=== PATIENT | female | born 1935 | race Caucasian/White ===

== ENCOUNTER 2016-11-03 08:24 | Emergency (ER) | payer OTHER ==
[~2016-11-03] VITALS: Ht 154.9 cm; Wt 50.0 kg
[2016-11-03] MEDS ORDERED: WARF1TAB46 PO (08:31)
[2016-11-03] MEDS ORDERED: TRAMADOL 50MG TABLET PO ONE (08:45)
[2016-11-03] MEDS ORDERED: BACITRACIN ZINC OINT UDPKT TOP ONE (09:15)
[2016-11-03 10:51] VITALS: BP 122/88
== END 2016-11-03 10:53 | disposition home or self-care (01) ==
LOC: ER 08:24
DX: S80.212A Abrasion, left knee, initial encounter (principal); S80.211A Abrasion, right knee, initial encounter; R07.82 Intercostal pain; W01.0XXA Fall on same level from slipping, tripping and stumbling without subsequent striking against object, initial encounter; Y93.89 Activity, other specified; Y92.89 Other specified places as the place of occurrence of the external cause; I10 Essential (primary) hypertension; I48.91 Unspecified atrial fibrillation; Z79.01 Long term (current) use of anticoagulants
CPT/HCPCS: 71101; 73562; 99284